=== PATIENT | female | born 1960 | race Caucasian/White ===

== ENCOUNTER → 2023-06-14 14:31 | Outpatient (REF) | payer MEDICARE, SELFPAY | LOC: WDC 14:31 | PROVIDERS: ATTENDING PHYSICIAN Obstetrics & Gynecology; FAMILY PHYSICIAN Family Medicine | DX: Z12.31 Encounter for screening mammogram for malignant neoplasm of breast (principal) | CPT/HCPCS: 77063; 77067 ==

== ENCOUNTER → 2023-08-07 08:45 | Outpatient (REF) | payer MEDICARE, SELFPAY | LOC: WDC 08:45 | PROVIDERS: ATTENDING PHYSICIAN Obstetrics & Gynecology; FAMILY PHYSICIAN Family Medicine | DX: R92.2 Inconclusive mammogram (principal) | CPT/HCPCS: 76641 ==

== ENCOUNTER 2023-12-11 19:14 | Emergency (ER) | payer MEDICARE, SELFPAY ==
[2023-12-11 19:20] VITALS: BP 121/70
[2023-12-11 20:07] VITALS: BMI 28.7
--- NOTE | 2023-12-11 20:17 | ED.GENMED ---
History of Present Illness
General
Chief Complaint: Musculo-Skeletal Complaint
Source: patient
Time Seen by Provider: 12/11/23 20:06
History of Present Illness
History of Present Illness:
63-year-old female presents to the emergency room for evaluation of left knee pain. Patient states she was descending a flight of steps when her left knee gave out so she put weight on it for the neck step. Since then she has had some pain in the
posterior aspect of her knee. Patient states she has been having some discomfort in that knee for the past 3 weeks and was contemplating making an appointment with an orthopedic doctor. However today this event was sudden and now the pain is
increased. She denies any other injuries or complaints.
Past History
Past History
ED Past Medical History: Valvular disease and Other
ED Past Surgical History: Appendectomy, Gynecological, Orthopedic, Tonsilectomy and Other
Social History
Tobacco: Non-smoker
Alcohol: None
Personal:
Living: with family
Employment: Employed
Family History
Family History: Other
Phy Exam
Physical Exam
Physical Exam:
General: Awake, Alert, Oriented X3. No acute distress.
Vitals: unremarkable
Head: Atraumatic
Eyes: Pupils equal, EOMI
Throat: Airway intact, no exudates
Neck: Trachea midline
Neuro: Nonfocal
Skin: Warm, dry, no rash
Extremities: pulses equal b/l, no edema. No significant effusion of the left knee. No significant tenderness over the patella, medial or lateral knee. There is minimal tenderness with flexion, extension. There is no laxity with anterior
posterior drawer. Patient does have some tenderness to palpation of the proximal calf.
Course
Orders/Labs/Results
Orders:
Orders
12/11/23 20:17
Knee, Left 4 or More Views [CR Knee - Left 4 Or More View*] Urgent
Comment:
Reason For Exam: left knee pain
12/11/23 21:08
Knee Immobilizer Left-Treatmen ONCE
Vital Signs
Initial and Last Documented VS:
Initial Vital Signs
Temp Pulse Resp BP Pulse Ox
98.2 F 86 16 121/70 98
12/11/23 19:20 12/11/23 19:20 12/11/23 19:20 12/11/23 19:20 12/11/23 19:20
Last Documented Vital Signs
Temp Pulse Resp BP Pulse Ox
98.2 F 86 16 121/70 98
12/11/23 19:20 12/11/23 19:20 12/11/23 19:20 12/11/23 19:20 12/11/23 19:20
MDM/Problems Addressed
Differential Diagnosis Includes:
fx, sprain, meniscus tear
MDM/Problems Addressed:
Patient presents after her knee giving out. X-ray shows mild degenerative changes. Overall presentation seems most consistent with a discal tear. Will place in a knee immobilizer. Recommend Ortho follow-up.
*Radiology
Radiology exam reviewed: preliminary read by ED provider (Personally viewed patient's knee films see no acute abnormality)
*Pulse Oximetry
Patient hypoxic: no
*Critical Care Note
Total Time (30-74mins, 75-104mins- exclusive of procedures): Not Applicable
ED Attending Note
-
Portions of this chart may have been created with voice recognition software.� Occasional wrong word or��sound alike� substitutions may have occurred due to the inherent limitations of voice recognition software.
Discharge Plan
Departure
Patient Disposition: Home (Routine Discharge)
Date of Disposition: 12/11/23
Time of Disposition: 21:06
Patient with high blood pressure during this ER visit?: No
Condition: Good
Discharge Problem:
Knee meniscus pain
Instructions: Meniscus Tear ED
Prescriptions:
No Action
Calcium
1,000 mg PO DAILY
oxycodone-acetaminophen 5 MG/325 MG tablet
1 - 2 tab PO Q4HPRN PRN (Reason: moderate pain) Qty: 25 0RF
ibuprofen 600 MG tablet
600 mg PO Q6HPRN PRN (Reason: pain) Qty: 0 0RF
simethicone [Gas Relief 80 (simethicone)] 80 MG tablet,chewable
80 mg PO QIDPRN PRN (Reason: gas distension) Qty: 0 0RF
Referrals:
Polo Roberson MD [Active] -
Vaishali Ren MD [Family Provider] -
Interventions
Interventions:
*Risk Screen - Suicide Last Done: 12/11/23 19:20
*General Assessment Last Done: 12/11/23 19:20
*Neglect/Abuse Screening Last Done: 12/11/23 19:20
*ED COVID-19 Vaccine History Last Done: 12/11/23 20:08
*Nursing Disposition Last Done: 12/11/23 21:34
ED-Musculoskeletal Assessment Last Done: 12/11/23 20:11
Discharge Date and Time
Discharge Date/Time: 12/11/23 21:34
Print Language: [id number]
== END 2023-12-11 21:34 | disposition home or self-care (01) ==
LOC: EMR 19:14
PROVIDERS: EMERGENCY PHYSICIAN Emergency Medicine; FAMILY PHYSICIAN Family Medicine
DX: M25.562 Pain in left knee (principal); X50.1XXA Overexertion from prolonged static or awkward postures, initial encounter; I38 Endocarditis, valve unspecified; Z88.0 Allergy status to penicillin; Z88.2 Allergy status to sulfonamides
CPT/HCPCS: 99283; 29505; 73564

== ENCOUNTER 2024-01-01 07:02 | Outpatient (RCR) | payer MEDICARE, SELFPAY | END 2024-01-01 23:59 | disposition home or self-care (01) | LOC: RPT 07:02 | PROVIDERS: ATTENDING PHYSICIAN Physician Assistant; FAMILY PHYSICIAN Family Medicine | DX: M23.307 Other meniscus derangements, unspecified meniscus, left knee (principal); M17.12 Unilateral primary osteoarthritis, left knee; Z73.6 Limitation of activities due to disability; M25.562 Pain in left knee | CPT/HCPCS: 97110; 97162 ==

== ENCOUNTER → 2024-08-06 09:35 | Outpatient (REF) | payer MEDICARE, SELFPAY | LOC: RAD 09:35 | PROVIDERS: ATTENDING PHYSICIAN Obstetrics & Gynecology; FAMILY PHYSICIAN Physician Assistant Medical | DX: Z78.0 Asymptomatic menopausal state (principal) | CPT/HCPCS: 77080 ==

== ENCOUNTER → 2024-11-25 13:52 | Outpatient (REF) | payer MEDICARE, SELFPAY | LOC: WDC 13:52 | PROVIDERS: ATTENDING PHYSICIAN Obstetrics & Gynecology | DX: R92.2 Inconclusive mammogram (principal) | CPT/HCPCS: 76641 ==